=== PATIENT | female | born 1970 | race Caucasian/White ===

== ENCOUNTER 2017-03-20 08:46 | Emergency (ER) | payer BC ==
[2017-03-20 09:00] VITALS: BP 128/82
--- NOTE | 2017-03-20 10:15 | UC ---
Knee Pain HPI - HPI Summary HPI Summary: FELL WHILE SNOWSHOEING YESTERDAY AFTERNOON. STRUCK RIGHT KNEE ON A ROCK. SWELLING HAS IMPROVED SINCE YESTERDAY BUT PAIN IS PERSISTENT. - History of Current Complaint Chief Complaint: UCLowerExtremity Stated Complaint: KNEE INJURY Time Seen by Provider: 03/20/17 09:55 Hx Obtained From: Patient, Family/Business Office Manager - Onset/Duration: Sudden Onset, Lasting Hours, Still Present Severity Initially: Moderate Severity Currently: Moderate Pain Intensity: 3 Pain Scale Used: 0-10 Numeric Character: Sharp, Aching Aggravating Factor(s): Movement, Weight Bearing Alleviating Factor(s): Rest Associated Signs And Symptoms: Positive: Swelling, Bruising Able to Bear Weight: Yes - WITH PAIN - Allergies/Home Medications Allergies/Adverse Reactions: Allergies Allergy/AdvReac Type Severity Reaction Status Date / Time Sulfa Antibiotics Allergy Rash Verified 03/20/17 08:54 narcotics Allergy See Comment Uncoded 03/20/17 08:54 Home Medications: Home Medications Aspirin [Aspirin 81 MG TAB] 03/20/17 [History] Citalopram TAB* [Celexa TAB*] 03/20/17 [History] Esomeprazole(NF) [Nexium(NF)] 03/20/17 [History] Levothyroxine TAB* [Synthroid TAB*] 03/20/17 [History] Montelukast Sodium TAB* [Singulair 10 MG TAB*] 03/20/17 [History] Simvastatin TAB(NF) [Zocor 10 MG (NF)] 03/20/17 [History] PMH/Surg Hx/FS Hx/Imm Hx Previously Healthy: Yes - Surgical History Surgical History: Yes Surgery Procedure, Year, and Place: HYSTERECTOMY. GALLBLADDER. Cervial rib removal - Family History Known Family History: Positive: Hypertension - Social History Alcohol Use: None Substance Use Type: None Smoking Status (MU): Never Smoked Tobacco Review of Systems Constitutional: Negative Skin: Bruising, Other - ABRASION Respiratory: Negative Cardiovascular: Negative Gastrointestinal: Negative Musculoskeletal: Arthralgia, Decreased ROM, Edema All Other Systems Reviewed And Are Negative: Yes Physical Exam Triage Information Reviewed: Yes Appearance: Well-Appearing, No Pain Distress, Well-Nourished Vital Signs: Initial Vital Signs Temp 97.7 F 03/20/17 08:56 Pulse 79 03/20/17 08:56 Resp 16 03/20/17 08:56 BP 128/82 03/20/17 08:56 Pulse Ox 99 03/20/17 08:56 Vital Signs Reviewed: Yes Eyes: Positive: Conjunctiva Clear ENT: Positive: Hearing grossly normal Neck: Positive: Supple Respiratory: Positive: No respiratory distress, No accessory muscle use Cardiovascular: Positive: Pulses Normal Abdomen Description: Positive: Soft Musculoskeletal: Positive: Other: - RIGHT KNEE: NO JOINT LINE TENDERNESS. MCL AND LCL INTACT TO STRESS TESTING. NEG LACHMANS. NEG DRAWERS SIGNS. NEG MCMURRAYS. NEG PATELLAR APPREHENSION TEST. NO TENDERNESS OVER PATELLAR LIGAMENT OR QUADRICEPS TENDON. DECREASED ROM (FLEXION). TENDER OVER PATELLA Neurological: Positive: Alert Psychological: Positive: Normal Response To Family, Age Appropriate Behavior Skin: Positive: Other - ABRASION AND BRUISING RIGHT KNEE Diagnostics - Radiology RIGHT KNEE XRAY Xray Interpretation: No Acute Changes Radiology Interpretation Completed By: Radiologist Knee Pain Course/Dx - Differential Dx/Diagnosis Provider Diagnoses: RIGHT KNEE CONTUSION/ABRASION Discharge - Discharge Plan Condition: Stable Disposition: HOME Patient Education Materials: Contusion in Adults (ED), Knee Pain (ED) Referrals: Aggie Flores MD [Primary Care Provider] - If Needed Additional Instructions: RIGHT KNEE XRAY TODAY NEGATIVE FOR FRACTURE OR DISLOCATION. REST, ICE, COMPRESS, ELEVATE. FOLLOW-UP WITH YOUR PCP IF YOU ARE NOT IMPROVING EXPECTED.
--- NOTE | 2017-03-20 10:31 | RAD ---
INDICATION: Right knee injury. TECHNIQUE: 4 views of the right knee were obtained. FINDINGS: The bones are in normal alignment. No joint effusion or fracture is seen. Joint spaces appear maintained. IMPRESSION: NO EVIDENCE FOR FRACTURE.
== END 2017-03-20 10:52 | disposition home or self-care (01) ==
LOC: UCEAST 08:46
DX: S80.211A Abrasion, right knee, initial encounter (principal); W19.XXXA Unspecified fall, initial encounter; Y93.29 Activity, other involving ice and snow; Y92.9 Unspecified place or not applicable
CPT/HCPCS: 99211; G0463

== ENCOUNTER 2017-04-22 14:43 | Emergency (ER) | payer BC ==
--- OUTSIDE RECORDS SUMMARY | 2017-04-22 15:08 | XMS REPORT ---
:1970 External Reference #:[id number] Author Organization [employer] Address [address] [address] Phone [phone] Care Team Providers Name Role Phone Gladis Love MD Care Team Information Coil Winding Supervisor Unavailable Gladis Love MD Primary Care Physician Unavailable Payers Type Date Identification Numbers Payment Provider Subscriber Commercial Effective: Policy Number: BS Facets Segun Tillman 2014 [id number] PayID: [id number] [facility] [address] [place] [address] Problems Date Description Provider Status Onset: 03/25/2017 Sprain of lateral collateral ligament of Ivanna Marin M.D. Active knee Onset: 10/30/2016 Obstructive sleep apnea syndrome Sonia Santillan MD Active Family History Date Family Member(s) Problem(s) Comments General Breast Cancer Paternal Aunt General Colon Cancer Paternal great grandfather General Hypothyroidism General Depression General Anxiety General Hypercholesterolemia Father Adenomatous Polyps multiple Father [place] mild, 50yrs old Mother Colon Cancer Mother Deep Venous Thrombosis (DVT) Social History Type Date Description Comments Marital Status Lives With Lives With Children Occupation Currently Working Cigarette Use Never Smoked Cigarettes ETOH Use Denies alcohol use Smoking Patient has never smoked Recreational Drug Use Denies Drug Use Daily Caffeine Consumes on average 1 cup of regular coffee per day Exercise Type/Frequency Does not exercise Allergies, Adverse Reactions, Alerts Date Description Reaction Status Severity Comments 04/16/2016 Sulfa Antibiotics active 04/16/2016 Adhesives active 04/16/2016 Pollen, Mold, Dust active 04/16/2016 Chocolate active sensitivity 10/30/2016 Narcotics active Sensitive Medications Medication Date Status Form Strength Qnty SIG Indications Ordering Provider Meloxicam 03/25/ Active Tablets 15mg 30tab 1 by mouth M25.461 Ivanna 2017 s every day Chelsy Marin Mandibular 10/30/ Active Device dear , G47.33 Sonia Advancement 2016 please Rashad Santillan evaluate and fabricate oral appliance for mild sleep apnea Iron 09/25/ Active Tablets 325(65Fe) 60tab 2 tab by Sonia 2016 mg s mouth Tyrell, every day Ciferex 09/24/ Active Capsules 1-3775mg-U 30cap 1 by mouth Sonia 2016 nit s every day MD Tyrell Aspirin / Active Tablets DR 81mg 1 by mouth Unknown 0000 every day Xyzal / Active Tablets 5mg 1 by mouth Unknown 0000 every day Citalopram / Active Tablets 20mg 1 by mouth Unknown Hydrobromide 0000 every day Nexium / Active Capsules DR 40mg 1 by mouth Unknown 0000 every day Singulair / Active Tablets 10mg 1 by mouth Unknown 0000 every day Simvastatin / Active Tablets 20mg 1 by mouth Unknown 0000 every day Synthroid / Active Tablets 125mcg 1 by mouth Unknown 0000 daily Vitamin D / Active 5,000 Unknown 0000 units daily Digestive / Active Capsules daily Unknown Advantage 0000 Multivitamins / Active Capsules 1 by mouth Unknown 0000 every day Vitamin C / Active Tablets 1000mg daily Unknown 0000 Fiber / Active 3-5 times Unknown 0000 per week Ventolin HFA / Active Aerosol 108(90Base 2 puffs by Unknown 0000 ) mcg/Act mouth four times a day as needed Albuterol / Active Nebulizer (2.5mg/3ML 1 vial via Unknown Sulfate 0000 ) 0.083% nebulizer 4 times daily as needed Asmanex / Active Aerosol 220mcg/Inh 1 puff Unknown Twisthaler 30 0000 daily Metered Doses Synthroid / Hx Tablets 112mcg 1 by mouth Unknown 0000 - on , 09/23/ , Sat and Sun Immunizations CPT Code Status Date Vaccine Lot # [id number] Given 11/21/2015 Influenza Virus 3Yrs & Over Vital Signs Date Vital Result Comment 04/01/2017 Height 66 inches 5'6" Weight 210.00 lb BP Systolic 150 mmHg BP Diastolic 100 mmHg Body Temperature 98.5 F Pain Level 9 BMI (Body Mass Index) 33.9 kg/m2 03/25/2017 Height 66 inches 5'6" Weight 210.00 lb Heart Rate 78 /min BP Systolic 136 mmHg BP Diastolic 90 mmHg Body Temperature 97.0 F BMI (Body Mass Index) 33.9 kg/m2 10/30/2016 Height 66 inches 5'6" Weight 196.00 lb Heart Rate 68 /min BP Systolic Sitting 104 mmHg BP Diastolic Sitting 80 mmHg Respiratory Rate 14 /min O2 % BldC Oximetry 98 % BMI (Body Mass Index) 31.6 kg/m2 09/24/2016 Height 66 inches 5'6" Weight 201.00 lb Heart Rate 70 /min BP Systolic Sitting 132 mmHg BP Diastolic Sitting 86 mmHg Respiratory Rate 16 /min O2 % BldC Oximetry 98 % room air BMI (Body Mass Index) 32.4 kg/m2 Neck Circumference in inches 15.5 04/16/2016 Height 66 inches 5'6" Weight 198.00 lb Heart Rate 80 /min 82 BP Systolic 148 mmHg right arm, reg cuff BP Diastolic 102 mmHg right arm, reg cuff BP Systolic Sitting 146 mmHg left arm, reg cuff BP Diastolic Sitting 102 mmHg left arm, reg cuff BP Systolic Standing 136 mmHg left arm, reg cuff BP Diastolic Standing 102 mmHg left arm, reg cuff Respiratory Rate 20 /min BMI (Body Mass Index) 32.0 kg/m2 Results Test Date Test Result H/L Range Note CBC Auto Diff 09/24/2016 White Blood Count 8.3 10^3/uL 3.5-10.8 Red Blood Count 4.47 10^6/uL 4.0-5.4 Hemoglobin 12.8 g/dL 12.0-16.0 Hematocrit 38 % 35-47 Mean Corpuscular Volume 86 fL 80-97 Mean Corpuscular Hemoglobin 29 pg 27-31 Mean Corpuscular HGB Conc 33 g/dL 31-36 Red Cell Distribution Width 13 % 10.5-15 Platelet Count 277 10^3/uL 150-450 Mean Platelet Volume 7 um3 Low 7.4-10.4 Abs Neutrophils 4.6 10^3/uL 1.5-7.7 Abs Lymphocytes 3.0 10^3/uL 1.0-4.8 Abs Monocytes 0.4 10^3/uL 0-0.8 Abs Eosinophils 0.2 10^3/uL 0-0.6 Abs Basophils 0 10^3/uL 0-0.2 Abs Nucleated RBC 0 10^3/uL Granulocyte % 55.2 % 38-83 Lymphocyte % 36.7 % 25-47 Monocyte % 4.7 % 1-9 Eosinophil % 3.0 % 0-6 Basophil % 0.4 % 0-2 Nucleated Red Blood Cells % 0 Laboratory test finding 09/24/2016 Ferritin 10.1 ng/mL Low 11-307 Iron & Iron Binding Capacity 09/24/2016 Iron 46 g/dL Low 50-212 Unsaturated Iron Binding 384 g/dL Total Iron Binding Capacity 430 g/dL 250-450 % Iron Saturation 11 % Low 15-55 Procedures Date CPT Code Description Status 09/28/2016 00553 Sleep Study Unattended,HRT Rate,Oxygen Sat,Resp Completed Effort/Airflow 04/16/2016 74145 EKG Tracing & Interpretation Completed Encounters Type Date Location Provider CPT E/M Dx Office Visit 10/30/2016 [facility] [address] G47.33 1:30p [facility] G25.81 Office Visit 09/24/2016 8:00a [facility] [place] [address] R06.83 [facility] R06.81 G25.81 R40.0 R41.840 Office Visit 04/16/2016 3:00p [facility], [address] R07.9 [facility] At [facility] [place], FACC, FSCAI R94.31 Plan of Care Future Appointment(s):04/04/2017 11:15 am - Shahla Osman DNP, RN, PRODUCT MARKETING ANALYST-BC at [facility]04/01/2017 - Ivanna Marin M.D.M25.561 Pain in right kneeNew Therapy:Physical TherapyFollow up:Follow up: 4 lmdgoL45.461 Effusion, right kneeW19.xxxD Unspecified fall, subsequent ujzgguqlqM59.01xD Contusion of right knee, subsequent encounter
--- OUTSIDE RECORDS SUMMARY | 2017-04-22 15:08 | XMS REPORT ---
:1970 External Reference #:[id number] Author Organization [employer] Address [address] [address] Phone [phone] Care Team Providers Name Role Phone Gladis Love MD Care Team Information Paramedic Instructor Unavailable Aggie Flores MD Primary Care Physician Unavailable Payers Type Date Identification Numbers Payment Provider Subscriber Commercial Effective: Policy Number: BS Facets Segun Tillman 2014 [id number] PayID: [id number] [place] [address] Problems Date Description Provider Status Onset: 03/25/2017 Sprain of lateral collateral ligament of Ivanna Marin M.D. Active knee Onset: 10/30/2016 Obstructive sleep apnea syndrome Sonia Santillan MD Active Family History Date Family Member(s) Problem(s) Comments General Breast Cancer Paternal Aunt General Colon Cancer Paternal great grandfather General Hypothyroidism General Depression General Anxiety General Hypercholesterolemia Father Adenomatous Polyps multiple Father [place] mild, 50yrs old Mother Colon Cancer Mother Deep Venous Thrombosis (DVT) Social History Type Date Description Comments Marital Status Lives With Lives With Children Occupation Currently Working Occupation foreign service officer Cigarette Use Never Smoked Cigarettes ETOH Use Denies alcohol use Smoking Patient has never smoked Recreational Drug Use Denies Drug Use Daily Caffeine Consumes on average 1 cup of regular coffee per day Exercise Type/Frequency Exercises sporadically Currently limited post knee injury Allergies, Adverse Reactions, Alerts Date Description Reaction [...] 220mcg/Inh 1 puff Unknown Twisthaler 30 0000 daily. Not Metered Doses using until spring04/04/17 Synthroid / Hx Tablets 112mcg 1 by mouth Unknown 0000 - on , , Sat 2017 and Sun Immunizations CPT Code Status Date Vaccine Lot # [id number] Given 11/21/2015 Influenza Virus 3Yrs & Over Vital Signs Date Vital Result Comment 04/04/2017 Height 66 inches 5'6" Weight 213.12 lb with shoes Heart Rate 80 /min BP Systolic Sitting 132 mmHg Lue large cuff BP Diastolic Sitting 90 mmHg Lue large cuff Respiratory Rate 16 /min O2 % BldC Oximetry 98 % On Ra BMI (Body Mass Index) 34.4 kg/m2 04/01/2017 Height 66 inches 5'6" Weight 210.00 [...] Procedures Date CPT Code Description Status 09/28/2016 02123 Sleep Study Unattended,HRT Rate,Oxygen Sat,Resp Completed Effort/Airflow 04/16/2016 17257 EKG Tracing & Interpretation Completed Encounters Type Date Location Provider CPT E/M Dx Office Visit 10/30/2016 [facility] [address] G47.33 1:30p [facility] G25.81 Office Visit 09/24/2016 8:00a [facility] [place] [address] R06.83 [facility] R06.81 G25.81 R40.0 R41.840 Office Visit 04/16/2016 3:00p [facility], [address] R07.9 [facility] At [facility] MD, FACC, FSCAI R94.31 Plan of Care Future Appointment(s):07/03/2017 8:00 am - Shahla Osman DNP, RN, WRITER PRODUCER-BC at [facility]04/04/2017 - Shahla Osman DNP, RN, WRITER PRODUCER- BCG47.33 Obstructive sleep apnea (adult) (pediatric)New Orders:Sleep StudyComments:AHI 7.7, O2 [place] 87%, supine index of 10.9.Using oral appliance/ mandibular deviceFollow up:3 monthsRecommendations:Continue oral appliance/ mandibular device. In-lab titration of appliance for best setting and assessfor effective treatment. Bring the garcia for the device titration to the lab. Call one week after thestudy for results. If you have any sleepiness while driving you MUST avoid operating a vehicle or machinery. If you have any further questions, please call the [facility] at [phone].
--- OUTSIDE RECORDS SUMMARY | 2017-04-22 15:08 | XMS REPORT ---
:1970 External Reference #:[id number] Author Organization [employer] Address [address] [address] Phone [phone] Care Team Providers Name Role Phone Gladis Love MD Care Team Information Business Proposal Rep Unavailable Gladis Love MD Primary Care Physician Unavailable Payers Type Date Identification Numbers Payment Provider Subscriber Commercial Effective: Policy Number: BS Facets Segun Tillman 2014 [id number] PayID: [id number] [facility] [address] [place] [address] Problems Date Description Provider Status Onset: 03/25/2017 Sprain of lateral collateral ligament of Ivanna Marin M.D. Active knee Onset: 10/30/2016 Obstructive sleep apnea syndrome Sonia Santillan MD Active Family History Date Family Member(s) Problem(s) Comments General Breast Cancer Paternal Aunt General Colon Cancer Paternal great grandfather General Hypothyroidism General Depression General Anxiety General Hypercholesterolemia Father Adenomatous Polyps multiple Father [place] mild, 50yrs old Mother Colon Cancer Mother [...] CPT Code Status Date Vaccine Lot # [id number] Given 11/21/2015 Influenza Virus 3Yrs & Over Vital Signs Date Vital Result Comment 03/25/2017 Height 66 inches 5'6" Weight 210.00 [...] Procedures Date CPT Code Description Status 09/28/2016 55846 Sleep Study Unattended,HRT Rate,Oxygen Sat,Resp Completed Effort/Airflow 04/16/2016 53698 EKG Tracing & Interpretation Completed Encounters Type Date Location Provider CPT E/M Dx Office Visit 10/30/2016 [facility] [address] G47.33 1:30p [facility] G25.81 Office Visit 09/24/2016 8:00a [facility] [place] [address] R06.83 [facility] R06.81 G25.81 R40.0 R41.840 Office Visit 04/16/2016 3:00p [facility], [address] R07.9 [facility] At [facility] MD, FACC, FSCAI R94.31 Plan of Care Future Appointment(s):04/04/2017 11:15 am - Shahla Osman DNP, RN, DIRECTOR MULTIPLE SCLEROSIS CENTER-BC at [facility]03/25/2017 - Ivanna Marin M.D.M25.561 Pain in right kneeFollow up:Follow up: after testing is completed - mri r kneeM25.461 Effusion, right kneeNew Medication:Meloxicam 15 mgNew Xrays:MRI Knee Right W/OS83.421A Sprain of lateral collateral ligament of right knee, initW19.xxxA Unspecified fall, initial ldhtvxsymV02.01xA Contusion of right knee , initial encounter
--- OUTSIDE RECORDS SUMMARY | 2017-04-22 15:08 | XMS REPORT ---
:1970 External Reference #:[id number] Author Organization [facility] Address [address] [place] [address] Phone [phone] Care Team Providers Name Role Phone Aggie Flores M.D. Care Team Information Senior Tax Analyst Unavailable Aggie Flores M.D. Primary Care Physician Unavailable Payers Type Date Identification Numbers Payment Provider Subscriber Commercial Policy Number: [id number] / Of [employer] Group Number: [id number] [address] [id number] PayID: [id number] [place] [address] Problems Date Description Provider Status Onset: 11/28/2016 Obstructive sleep apnea syndrome Aggie Flores M.D. Active Onset: 11/28/2016 Restless legs Aggie Flores M.D. Active Onset: 11/28/2016 Major depressive disorder Aggie Flores M.D. Active Onset: 11/28/2016 Gastroesophageal reflux disease Aggie Flores M.D. Active Onset: 11/28/2016 Hypothyroidism Aggie Flores M.D. Active Onset: 11/28/2016 Asthma Aggie Flores M.D. Active Onset: 11/28/2016 Hyperlipidemia Aggie Flores M.D. Active Onset: 04/10/2017 Mild intermittent asthma Aggie Flores M.D. Active Family History Date Family Member(s) Problem(s) Comments General Breast Cancer father's sister - inflammatory breast Ca. MGM- breast CA. General Colon Cancer mother. father had multiple adenomatous polyps, PGGF - of colon cancer. Father 75 Father Coronary Artery Disease (CAD) Father Hyperlipidemia Father Hypertension Mother 70 Mother Colon Cancer Mother Hypertension Mother Arthritis First Son 21 Second Son 18 Third Son 14 Third Son Hypothyroidism Siblings 3 sisters hypthyroidism, depression, anxiety. Social History Type Date Description Comments Marital Status Legal Status: Lives With Children Lives With Spouse Diet Diet cut back soda, sugar/carbs Occupation [employer] Cigarette Use Never Smoked Cigarettes ETOH Use Denies alcohol use Smoking Patient has never smoked Exercise Type/Frequency Exercises sporadically Allergies, Adverse Reactions, Alerts Date Description Reaction Status Severity Comments 04/09/2016 Sulfa celebrex- multiple intes ulcer active 11/28/2016 Tramadol active Medications Medication Date Status Form Strength Qnty SIG Indications Ordering Provider Levothyroxine 04/10/ Active Tablets 137mcg 90tab 1 by mouth Aggie Sodium 2018 s every day Chelsy Flores Xyzal / Active Tablets 5mg 90tab 1 by mouth Aggie 0000 s every day Chelsy Flores Citalopram / Active Tablets 20mg 135ta 1.5 tabs by Aggie Hydrobromide 0000 bs mouth every , day MMilly Nexium / Active Packet 40mg 1 tab am Unknown 0000 Singulair / Active Tablets 10mg 90tab 1 by mouth Aggie 0000 s every day Chelsy Flores Simvastatin / Active Tablets 20mg 90tab 1 by mouth Aggie 0000 s every day Chelsy Flores Asmanex 14 / Active Aerosol 220mcg/In 3unit 1 Aggie Metered Doses 0000 h s inhalations Godfrey, twice a day M.DAlmaz Ventolin HFA / Active Aerosol 108(90Bas 18gm 2 puffs Aggie 0000 e) every 4 Godfrey, mcg/Act hours as M.D. needed Albuterol / Active Nebulizer 0.63mg/3M 150ml 1 ampule Aggie Sulfate 0000 L every four Godfrey, hours via M.DAlmaz nebulizer as needed Multivitamin / Active Tablets 1 by mouth Unknown Adult 0000 every day Vitamin D 00/ Active Tablets 1000Unit 5 by mouth Unknown 0000 every day otc Fiber 00/ Active Tablets 625mg 1 PO qd Unknown 0000 Digestive 00/ Active Capsules 1 PO qd Unknown Advantage 0000 Vitamin C / Active Tablets 1000mg 1 /day Unknown 0000 Aspirin 00// Active Tablets DR 81mg 1 by mouth Unknown 0000 every day Folic Acid // Active Tablets 400mcg Unknown 0000 Synthroid / Hx Tablets 125mcg 90tab 1 tab daily Aggie 0000 - s Godfrey, 04/10/ M.DAlmaz 2018 Synthroid / Hx Tablets 112mcg Sun TTHsat Unknown 0000 - 2016 Vital Signs Date Vital Result Comment 04/10/2017 BP Systolic 120 mmHg BP Diastolic 68 mmHg Heart Rate 68 /min Body Temperature 98.1 F Respiratory Rate 16 /min Height 66 inches 5'6" Weight 211.00 lb BMI (Body Mass Index) 34.1 kg/m2 11/28/2016 BP Systolic 110 mmHg BP Diastolic 84 mmHg Heart Rate 72 /min Body Temperature 98.1 F Respiratory Rate 16 /min Height 66 inches 5'6" Weight 202.00 lb BMI (Body Mass Index) 32.6 kg/m2 08/03/2016 BP Systolic 154 mmHg BP Diastolic 84 mmHg Heart Rate 72 /min Body Temperature 97.9 F Height 66 inches 5'6" Weight 201.00 lb BMI (Body Mass Index) 32.4 kg/m2 04/09/2016 BP Systolic 110 mmHg BP Diastolic 72 mmHg Heart Rate 64 /min Body Temperature 98.6 F Respiratory Rate 16 /min Height 66 inches 5'6" Weight 198.00 lb BMI (Body Mass Index) 32.0 kg/m2 Results Test Date Test Result H/L Range Note Complete Blood Count 11/28/2016 WBC 7.2 x10^3/UL 3.6-9.6 RBC 4.72 x10^6/UL 3.90-5.70 HGB 13.7 g/dL 12.1-17.2 HCT 40 % 36-50 MCV 84.0 fL 82.2-97.4 MCH 29.1 pg 27.6-33.3 MCHC 34.5 g/dL 33.0-35.5 RDW 13.8 % High 11.6-13.7 PLT 333 x10^3/UL 150-400 MPV 5.9 fL Low 7.4-10.4 Gran # 4.0 x10^3/UL 1.5-7.2 Lymph# 2.9 x10^3/UL 0.7-4.9 Keith# 0.3 x10^3/UL 0.1-0.9 Gran % 54.1 % 42.2-75.2 Lymph % 41.6 % 20.5-51.1 Keith% 4.3 % 1.7-9.3 Laboratory test finding 11/28/2016 TSH 4.14 mIU/L 0.50-6.00 Free T4 1.03 ng/dL 0.75-1.54 Serum Iron 57 g/dL Low 60-150 Ferritin 10 ng/mL Low 15-200 1 Iron & Iron Binding Capacity 09/24/2016 Iron 46 g/dL Low 50-212 Unsaturated Iron Binding 384 g/dL Total Iron Binding Capacity 430 g/dL 250-450 % Iron Saturation 11 % Low 15-55 Laboratory test finding 09/24/2016 Ferritin 10.1 ng/mL Low 11-307 CBC Auto Diff 09/24/2016 White Blood Count [...] 0-2 Nucleated Red Blood Cells % 0 CBC No Diff 04/10/2016 White Blood Count 6.4 10^3/uL 3.5-10.8 Red Blood Count 4.98 10^6/uL 4.0-5.4 Hemoglobin 14.0 g/dL 12.0-16.0 Hematocrit 41 % 35-47 Mean Corpuscular Volume 83 fL 80-97 Mean Corpuscular Hemoglobin 28 pg 27-31 Mean Corpuscular HGB Conc 34 g/dL 31-36 Red Cell Distribution Width 13 % 10.5-15 Platelet Count 269 10^3/uL 150-450 Mean Platelet Volume 7 um3 Low 7.4-10.4 Comp Metabolic Panel 04/10/2016 Sodium 139 mmol/L 133-145 Potassium 4.0 mmol/L 3.5-5.0 Chloride 103 mmol/L 101-111 Co2 Carbon Dioxide 30 mmol/L 22-32 Anion Gap 6 mmol/L 2-11 Glucose 88 mg/dL 70-100 Blood Urea Nitrogen 15 mg/dL 6-24 Creatinine 0.79 mg/dL 0.51-0.95 BUN/Creatinine Ratio 19.0 8-20 Calcium 9.2 mg/dL 8.6-10.3 Total Protein 6.7 g/dL 6.4-8.9 Albumin 4.4 g/dL 3.2-5.2 Globulin 2.3 g/dL 2-4 Albumin/Globulin Ratio 1.9 1-3 Total Bilirubin 0.80 mg/dL 0.2-1.0 Alkaline Phosphatase 73 U/L 34-104 Alt 19 U/L 7-52 Ast 19 U/L 13-39 Egfr Non- 78.3 >60 Egfr 100.8 >60 2 Lipid Profile (Trig/Chol/HDL) 04/10/2016 Triglycerides 121 mg/dL 3 Cholesterol 173 mg/dL 4 HDL Cholesterol 43.2 mg/dL 5 LDL Cholesterol 106 mg/dL 6 Laboratory test finding 04/10/2016 TSH (Thyroid Stim Horm) 3.72 mcIU/mL 0.34-5.60 Free T4 (Free Thyroxine) 0.92 ng/dL 0.61-1.12 Vitamin D Total 25(Oh) 41.3 ng/mL 30-50 1 RESULTS VERIFIED BY REPEAT ANALYSIS 2 Because ethnic data is not always readily available, this report includes an eGFR for both -Americans and non- Americans. The National Kidney Disease Education Program (NKDEP) does not endorse the use of the MDRD equation for patients that are not between the ages of 18 and 70, are , have extremes of body size, muscle mass, or nutritional status, or are non- or non-. According to the National Kidney Foundation, irrespective of diagnosis, the stage of the disease is based on the level of kidney function: Stage Description GFR(mL/min/1.73 m(2)) 1 Kidney damage with normal or decreased GFR 90 2 Kidney damage with mild decrease in GFR 60-89 3 Moderate decrease in GFR 30-59 4 Severe decrease in GFR 15-29 5 Kidney failure <15 (or dialysis) 3 Desirable <150 Borderline high 150-199 High 200-499 Very High >500 4 Desirable <200 Borderline high 200-239 High >239 5 Low <40 Desirable: 40-60 High: >60 6 Desirable: <100 mg/dL Near Optimal: 100-129 mg/dL Borderline High: 130-159 mg/dL High: 160-189 mg/dL Very High: >189 mg/dL Procedures Date CPT Code Description Status Comment 04/09/2016 37281 Electrocardiogram Complete Completed 03/18/2016 Mammogram Completed 03/18/2013 Colonoscopy Completed due in 2019. Encounters Type Date Location Provider CPT E/M Dx Office Visit 11/28/2016 1:[facility] Aggie Flores M.D. 06113 E03.9 G47.33 G25.81 J45.20 Office Visit 08/03/2016 11:20a [facility] Aggie Flores M.D. 59395 Q76.5 E03.8 R06.83 J45.20 Office Visit 04/09/2016 2:30p [facility] Gladis Love M.D. 20662 R07.89 F43.23 E03.8 Q76.5 E55.9 Z00.01 Plan of Care 04/10/2017 - Aggie Flores M.D.Z00.00 Encntr for general adult medical exam w/o abnormal findingsNew Labs:CBC Electronic-ALL Lab CompaniComp Metabolic-ALL Lab CompaniLipid Panel-ALL Lab [facility] ([facility] – [place]/[facility])Comments:Encourage an active and healthy lifestyle with proper eating habits including fruits, vegetables, 6-8 glasses of water a day and monitoring portion size. Recommend 30 minutes of daily physical activityincluding walking, aerobic exercise, sports , yoga or dance. Any activity is better than no activity.Recommend routine eye and dental exams. Next physical is due in 1-2 years.Follow up:fasting labs 1 yearE03.9 Hypothyroidism, unspecifiedNew Labs:TSH ([facility])Free T4 ([facility]/ [facility])Comments:increase to 137 check tsh in 4 bqpgxR58.33 Obstructive sleep apnea (adult) (pediatric)Comments:mandibular zkcssaS99.20 Mild intermittent asthma, uncomplicatedComments:stable on regimenAllNew Medication:Levothyroxine Sodium 137 mcgComments:~B_~U_Medication Management~b_~u_ Patient Understands medications she's taking? Yes No Are there Barriers to Adherence? Yes No Has the patient been asked about herbal supplements and therapies, and OTC meds? Yes No
[2017-04-22 16:24] LABS: ABS Basophils 0 10^3/ul (0-0.2); ABS Eosinophils 0 10^3/ul (0-0.6); ABS Monocytes 0.5 10^3/ul (0-0.8); ABS Neutrophils 2.8 10^3/ul (1.5-7.7); ABS Nucleated RBC 0 10^3/ul; Hematocrit 39 % (35-47); Hemoglobin 13.4 g/dl (12.0-16.0); Mean Corpuscular HGB Conc 35 g/dl (31-36); Mean Corpuscular Hemoglobin 29 pg (27-31); Mean Corpuscular Volume 84 fL (80-97); Mean Platelet Volume 7 um3 (7.4-10.4); Nucleated Red Blood Cells % 0; Platelet Count 226 10^3/ul (150-450); Red Blood Count 4.56 10^6/ul (4.0-5.4); Red Cell Distribution Width 13 % (10.5-15); White Blood Count 4.4 10^3/ul (3.5-10.8)
--- NOTE | 2017-04-22 16:40 | RAD ---
HISTORY: Cough COMPARISONS: None VIEWS: 4: Frontal dual-energy and lateral views of the chest. FINDINGS: CARDIOMEDIASTINAL SILHOUETTE: The cardiomediastinal silhouette is normal. DEVIKA: The devika are normal. PLEURA: The costophrenic angles are sharp. No pleural abnormalities are noted. LUNG PARENCHYMA: The lungs are clear. ABDOMEN: The upper abdomen is clear. There is no subphrenic gas. BONES AND SOFT TISSUES: No bone or soft tissue abnormalities are noted. OTHER: None. IMPRESSION: NO ACTIVE CARDIOPULMONARY DISEASE.
[2017-04-22 16:41] LABS: EGFR Non-African American 82.8 (>60)
--- NOTE | 2017-04-22 16:52 | ED ---
Influenza-Like Illness - HPI Summary HPI Summary: 46-year-old female presents with cough for past 3 days. She states she has been having shortness of breath. She states she has been having chest tightness when she coughs. She has history of asthma. She does take an inhaler for asthma. She states that she has asmanex at home that she has not been taking. She admits to nausea but denies any vomiting. She admits to an episode of diarrhea. She denies any abdominal pain. She admits to muscle fatigue and fevers. She states last years she had a sudden cardiac event. - History of Current Complaint Chief Complaint: EDFluSymptoms Time Seen by Provider: 04/22/17 15:10 - Allergy/Home Medications Allergies/Adverse Reactions: Allergies Allergy/AdvReac Type Severity Reaction Status Date / Time MS Sulfa Antibiotics Allergy Rash Verified 03/27/17 14:16 [Sulfa Antibiotics] narcotics Allergy See Comment Uncoded 03/27/17 14:16 PMH/Surg Hx/FS Hx/Imm Hx Endocrine/Hematology History: Denies: Hx Anticoagulant Therapy, Hx Diabetes Cardiovascular History: Denies: Hx Hypertension, Hx Pacemaker/ICD Respiratory History: Reports: Hx Asthma History: Denies: Hx Renal Disease Sensory History: Denies: Hx Hearing Aid Psychiatric History: Denies: Hx Panic Disorder - Surgical History Surgery Procedure, Year, and Place: HYSTERECTOMY. GALLBLADDER. Cervial rib removal. OVARIAN CYST REMOVED 1990 Infectious Disease History: No Infectious Disease History: Denies: History Other Infectious Disease, Traveled Outside the [place] in Last 30 Days - Family History Known Family History: Positive: Hypertension - Social History Alcohol Use: Rare Substance Use Type: Reports: None Smoking Status (MU): Never Smoked Tobacco Review of Systems Positive: Fever Positive: Chest Pain Positive: Shortness Of Breath, Cough Positive: Diarrhea, Nausea. Negative: Abdominal Pain, Vomiting All Other Systems Reviewed And Are Negative: Yes Physical Exam Triage Information Reviewed: Yes Vital Signs On Initial Exam: Initial Vitals Temp Pulse Resp BP Pulse Ox 98.7 F 92 18 152/92 99 04/22/17 14:46 04/22/17 14:46 04/22/17 14:46 04/22/17 14:46 04/22/17 14:46 Vital Signs Reviewed: Yes Appearance: Positive: Well-Appearing Skin: Positive: Warm, Dry Head/Face: Positive: Normal Head/Face Inspection Eyes: Positive: Normal, EOMI, AMARA, Conjunctiva Clear ENT: Positive: Pharynx normal, Nasal congestion, TMs normal Neck: Positive: Supple, Nontender, No Lymphadenopathy Respiratory/Lung Sounds: Positive: Clear to Auscultation, Breath Sounds Present Cardiovascular: Positive: Normal, RRR Abdomen Description: Positive: Nontender, Soft Bowel Sounds: Positive: Present Musculoskeletal: Positive: Normal Neurological: Positive: Normal Psychiatric: Positive: Normal Diagnostics - Vital Signs Vital Signs Temp Pulse Resp BP Pulse Ox 04/22/17 14:46 98.7 F 92 18 152/92 99 - Laboratory Lab Results: Lab Results 04/22/17 04/22/17 04/22/17 Range/Units 15:34 16:10 16:10 WBC 4.4 (3.5-10.8) 10^3/ul RBC 4.56 (4.0-5.4) 10^6/ul Hgb 13.4 (12.0-16.0) g/dl Hct 39 (35-47) % MCV 84 (80-97) fL MCH 29 (27-31) pg MCHC 35 (31-36) g/dl RDW 13 (10.5-15) % Plt Count 226 (150-450) 10^3/ul MPV 7 L (7.4-10.4) um3 Neut % (Auto) 63.7 (38-83) % Lymph % (Auto) 24.0 L (25-47) % [place] % (Auto) 10.6 H (1-9) % Eos % (Auto) 1.0 (0-6) % Baso % (Auto) 0.7 (0-2) % Absolute Neuts (auto) 2.8 (1.5-7.7) 10^3/ul Absolute Lymphs (auto) 1.0 (1.0-4.8) 10^3/ul Absolute Monos (auto) 0.5 (0-0.8) 10^3/ul Absolute Eos (auto) 0 (0-0.6) 10^3/ul Absolute Basos (auto) 0 (0-0.2) 10^3/ul Absolute Nucleated RBC 0 10^3/ul Nucleated RBC % 0 Sodium (133-145) mmol/L Potassium (3.5-5.0) mmol/L Chloride (101-111) mmol/L Carbon Dioxide (22-32) mmol/L Anion Gap (2-11) mmol/L BUN (6-24) mg/dL Creatinine (0.51-0.95) mg/dL Est GFR ( Amer) (>60) Est GFR (Non-Af Amer) (>60) BUN/Creatinine Ratio (8-20) Glucose (70-100) mg/dL Calcium (8.6-10.3) mg/dL Total Bilirubin (0.2-1.0) mg/dL AST (13-39) U/L ALT (7-52) U/L Alkaline Phosphatase (34-104) U/L Troponin I (<0.04) ng/mL B-Natriuretic Peptide 174 H ( - 100) pg/mL Total Protein (6.4-8.9) g/dL Albumin (3.2-5.2) g/dL Globulin (2-4) g/dL Albumin/Globulin Ratio (1-3) Influenza A (Rapid) Positive H (Negative) Influenza B (Rapid) Negative (Negative) 04/22/17 Range/Units 16:10 WBC (3.5-10.8) 10^3/ul RBC (4.0-5.4) 10^6/ul Hgb (12.0-16.0) g/dl Hct (35-47) % MCV (80-97) fL MCH (27-31) pg MCHC (31-36) g/dl RDW (10.5-15) % Plt Count (150-450) 10^3/ul MPV (7.4-10.4) um3 Neut % (Auto) (38-83) % Lymph % (Auto) (25-47) % [place] % (Auto) (1-9) % Eos % (Auto) (0-6) % Baso % (Auto) (0-2) % Absolute Neuts (auto) (1.5-7.7) 10^3/ul Absolute Lymphs (auto) (1.0-4.8) 10^3/ul Absolute Monos (auto) (0-0.8) 10^3/ul Absolute Eos (auto) (0-0.6) 10^3/ul Absolute Basos (auto) (0-0.2) 10^3/ul Absolute Nucleated RBC 10^3/ul Nucleated RBC % Sodium 137 (133-145) mmol/L Potassium 3.7 (3.5-5.0) mmol/L Chloride 103 (101-111) mmol/L Carbon Dioxide 28 (22-32) mmol/L Anion Gap 6 (2-11) mmol/L BUN 13 (6-24) mg/dL Creatinine 0.75 (0.51-0.95) mg/dL Est GFR ( Amer) 106.5 (>60) Est GFR (Non-Af Amer) 82.8 (>60) BUN/Creatinine Ratio 17.3 (8-20) Glucose 100 (70-100) mg/dL Calcium 9.2 (8.6-10.3) mg/dL Total Bilirubin 0.40 (0.2-1.0) mg/dL AST 34 (13-39) U/L ALT 39 (7-52) U/L Alkaline Phosphatase 61 (34-104) U/L Troponin I 0.00 (<0.04) ng/mL B-Natriuretic Peptide ( - 100) pg/mL Total Protein 7.0 (6.4-8.9) g/dL Albumin 4.1 (3.2-5.2) g/dL Globulin 2.9 (2-4) g/dL Albumin/Globulin Ratio 1.4 (1-3) Influenza A (Rapid) (Negative) Influenza B (Rapid) (Negative) Result Diagrams: 04/22/17 16:10 04/22/17 16:10 Lab Statement: Any lab studies that have been ordered have been reviewed, and results considered in the medical decision making process. - Radiology chest Xray Interpretation: No Acute Changes Radiology Interpretation Completed By: Radiologist - EKG No standard instances Cardiac Rate: NL EKG Rhythm: Sinus Rhythm ST Segment: Normal EKG Interpretation: normal sinus rhythm EKG Comparison: No Significant Change Flu Symptom Course/Dx - Course Course Of Treatment: 46-year-old female presents with cough for past 3 days. She states she has been having shortness of breath. She states she has been having chest tightness when she coughs. She has history of asthma. She does take an inhaler for asthma. She states that she has asmanex at home that she has not been taking. She admits to nausea but denies any vomiting. She admits to an episode of diarrhea. She denies any abdominal pain. She admits to muscle fatigue and fevers. She states last years she had a sudden cardiac event. on exam lungs CTA. abdomen soft nontender. ekg normal. chest xray normal. flu A pos. will treat with tamiflu and tessalon. patient will restart asmanex. patient understand and agrees with plan. - Diagnoses Differential Diagnosis/HQI/PQRI: Positive: Influenza, Pneumonia, Upper Respiratory Infection Provider Diagnoses: Influenza Discharge - Discharge Plan Condition: Good Disposition: HOME Prescriptions: Benzonatate CAP* [Tessalon 100 MG CAP*] 100 mg PO TID #21 cap Ondansetron ODT TAB* [Zofran 4 MG Odt TAB*] 4 mg PO Q6H PRN #12 tab.odt PRN Reason: Nausea Oseltamivir CAP* [Tamiflu CAP*] 75 mg PO BID #9 cap Patient Education Materials: Influenza (ED) Referrals: Aggie Flores MD [Primary Care Provider] - Additional Instructions: Take Tamiflu twice for 5 days first dose given in ED Take tessalon three times a day for cough Take Tylenol and ibuprofen for muscle aches and fever every 6 hours Restart home inhaled steroid Use Zofran every 6 hours for nausea as needed Saline rinse can be used multiple times a day for nasal congestion Use humidifier in room or place bowls of warm water around room for cough Try to drink fluids every hour and eat a small snack every 3 hours Follow up with primary within 5 days Return to ED if develop any new or worsening symptoms
[2017-04-22] MEDS ORDERED: Oseltamivir CAP* 75 MG CAP PO ONE (16:57)
[2017-04-22 17:27] VITALS: BP 133/86
== END 2017-04-22 17:25 | disposition home or self-care (01) ==
LOC: ED 14:43
DX: J11.1 Influenza due to unidentified influenza virus with other respiratory manifestations (principal); R07.89 Other chest pain; R06.02 Shortness of breath; J45.909 Unspecified asthma, uncomplicated; Z90.710 Acquired absence of both cervix and uterus; Z90.49 Acquired absence of other specified parts of digestive tract; Z88.5 Allergy status to narcotic agent; Z88.2 Allergy status to sulfonamides
CPT/HCPCS: 36415; 71046; 80053; 83880; 84484; 85025; 87502; 93005; 99283; A9270-GY

== ENCOUNTER 2017-06-05 13:11 | Emergency (ER) | payer BC ==
[2017-06-05 14:31] VITALS: BP 162/92
--- NOTE | 2017-06-05 15:33 | RAD ---
INDICATION: 5 days shortness of breath. Productive cough. Fever. Previous myocardial infarction. Asthma. COMPARISON: April 22, 2017 TECHNIQUE: Dual energy PA and routine lateral views of the chest were obtained. REPORT: Elevated lung volumes. No focal pulmonary lesion, compelling alveolar consolidation, pleural effusion, pneumothorax. The heart, pulmonary vasculature, and mediastinal contours are unremarkable. LEFT supraclavicular surgical clips. IMPRESSION: Elevated lung volumes suggest obstructive lung disease. No acute cardiopulmonary process evident.
--- NOTE | 2017-06-05 19:01 | UC ---
Kaushal Barragan Rebecca, scribed for Terrell Brandon MD on 06/05/17 at 1509 . Respiratory Complaint HPI - HPI Summary HPI Summary: Pt is a 46 y/o F who presents to [facility] with a CC of SOB. Patient has been feeling "sick" since 05/30, 1 week ago. Patient reports symptoms began as a sore throat, rhinorrhea, and "stuffy head." Symptoms then progressed to consist of fever, nasal and chest congestion, dizziness, productive cough, post nasal drip , and sinus pain. Today, the patient began feeling SOB which prompted her visit to [facility]. Rhinorrhea is producing yellow/green discharge and her cough is "drum drier" at night. Sx aggravated and alleviated by nothing. She had influenza A last month which she feels did not fully improve prior to the onset of her current symptoms. 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 PMHx asthma. - History of Current Complaint Chief Complaint: UCRespiratory Stated Complaint: COUGH HEADACHE FEVER CONGESTION Time Seen by Provider: 06/05/17 14:36 Hx Obtained From: Patient Hx Last Menstrual Period: hysterectomy Onset/Duration: Lasting Days, Still Present Severity Currently: Moderate Pain Intensity: 7 Pain Scale Used: 0-10 Numeric Character: Cough: Productive Aggravating Factors: Nothing Alleviating Factors: Nothing Associated Signs And Symptoms: Positive: Fever, Nasal Congestion - Allergies/Home Medications Allergies/Adverse Reactions: Allergies Allergy/AdvReac Type Severity Reaction Status Date / Time Sulfa (Sulfonamide Allergy Intermediate Rash Verified 06/05/17 14:10 Antibiotics) mold Allergy sinus Verified 06/05/17 14:10 pollen extracts Allergy sinus, Verified 06/05/17 14:10 breathing narcotics Allergy See Comment Uncoded 06/05/17 14:10 PMH/Surg Hx/FS Hx/Imm Hx - Additional Past Medical History Additional PMH: PMHx: asthma, hypothyroid, seasonal allergies, sudden cardiac arrest s/p surgery Other History Of: Negative For: Anticoagulant Therapy - Surgical History Surgical History: Yes Surgery Procedure, Year, and Place: HYSTERECTOMY. GALLBLADDER. Cervial rib removal. OVARIAN CYST REMOVED 1990 - Family History Known Family History: Positive: Hypertension - Social History Alcohol Use: Rare Substance Use Type: None Smoking Status (MU): Never Smoked Tobacco Review of Systems Constitutional: Fever, Other - "stuffy head" ENT: Sore Throat, Nasal Discharge, Sinus Congestion, Other - Post nasal dripo Respiratory: Shortness Of Breath, Cough - productive, Other - Chest congestion Cardiovascular: Negative Gastrointestinal: Negative Genitourinary: Negative Motor: Negative Neurovascular: Negative Musculoskeletal: Negative Neurological: Negative Psychological: Negative All Other Systems Reviewed And Are Negative: Yes Physical Exam - Summary Physical Exam Summary: VITAL SIGNS: Reviewed. GENERAL: ~Patient is a well developed and nourished F who is lying comfortable in the stretcher. ~Patient is not in any acute respiratory distress. HEAD AND FACE: Normocephalic EYES: PERRLA, EOMI x 2. EARS: Hearing grossly intact. MOUTH: Mild runny nose. No pharyngeal erythema. NECK: Supple, trachea is midline, no adenopathy, no JVD, no carotid bruit. CHEST: Symmetric, no tenderness at palpation LUNGS: Crackles on the left side. CVS: Regular rate and rhythm, S1 and S2 present, no murmurs or gallops appreciated. ABDOMEN: Soft, non-tender. Bowel sounds are normal. No abdominal abnormal pulsations. EXTREMITIES: Full ROM in all major joints, no edema, no cyanosis or clubbing. NEURO: Alert and oriented x 3. No acute neurological deficits. Speech is normal and follows commands. SKIN: Dry and warm Triage Information Reviewed: Yes Vital Signs: Initial Vital Signs Temp 97.9 F 06/05/17 14:02 Pulse 81 06/05/17 14:02 Resp 16 06/05/17 14:02 BP 136/98 06/05/17 14:02 Pulse Ox 98 06/05/17 14:02 Vital Signs Reviewed: Yes Diagnostic Evaluation - Laboratory O2 Sat by Pulse Oximetry: 96 - Radiology Xray Interpretation: No Acute Changes - Elevated lung volumes suggest obstructive lung disease. No acute cardiopulmonary process evident. Physician reviewed this radiology report. Radiology Interpretation Completed By: Radiologist Respiratory Course/Dx - Course Course Of Treatment: Pt is a 46 y/o F who presents to [facility] with a CC of SOB. Patient has been feeling "sick" since 05/30, 1 week ago. Patient reports symptoms began as a sore throat, rhinorrhea, and "stuffy head." Symptoms then progressed to consist of fever, nasal and chest congestion, dizziness, productive cough, post nasal drip, and sinus pain. Today, the patient began feeling SOB which prompted her visit to [facility]. Rhinorrhea is producing yellow/ green discharge and her cough is "drum drier" at night. She had influenza A last month which she feels did not fully improve prior to the onset of her current symptoms. PMHx asthma. Influenza A and B negative. CXR reveals no acute findings. Pt will be D/C to home with Dx of bronchitis with Rx for Z-Gabino. Patient understands and agrees. Allergies noted. The patient was found to have increase BP in UC. The patient will follow up with PCP for better control of BP. - Differential Dx/Diagnosis Differential Diagnosis/HQI/PQRI: Asthma, Bronchitis, Laryngitis, Lower Resp Infection, Sinusitis Provider Diagnoses: Bronchitis Discharge - Sign-Out/Discharge Documenting (check all that apply): Discharge - Discharge Plan Condition: Stable Disposition: HOME Prescriptions: Azithromyxin GABINO (NF) [Z-Gabino (Zithromax) 250 mg tabs #6] 2 tab PO .TODAY, THEN 1 DAILY #6 tab Patient Education Materials: Acute Bronchitis (ED) Referrals: Aggie Flores MD [Primary Care Provider] - Additional Instructions: Take medications as instructed Increase your fluid intake Return to the if symptoms worsen FOLLOW UP WITH YOUR PRIMARY CARE PROVIDER WITHIN ONE WEEK FOR HIGH BLOOD PRESSURE NOTED TODAY. - Billing Disposition and Condition Condition: STABLE Disposition: HOME The documentation as recorded by the Kaushal chamberlain Rebecca accurately reflects the service I personally performed and the decisions made by , Terrell Brandon MD.
== END 2017-06-05 15:56 | disposition home or self-care (01) ==
LOC: UCEAST 13:11
DX: J40 Bronchitis, not specified as acute or chronic (principal); Z88.5 Allergy status to narcotic agent; Z88.2 Allergy status to sulfonamides
CPT/HCPCS: 71046; 87502; 99212; G0463

== ENCOUNTER 2017-08-09 15:55 | Emergency (ER) | payer BC ==
--- OUTSIDE RECORDS SUMMARY | 2017-08-09 16:17 | XMS REPORT ---
:1970 External Reference #:[id number] Author Organization [employer] Address [address] [address] Phone [phone] Care Team Providers Name Role Phone Gladis Love MD Care Team Information Keno Writer / Runner Unavailable Aggie Flores MD Primary Care Physician Unavailable Payers Type Date Identification Numbers Payment Provider Subscriber Commercial Effective: Policy Number: BS [employer] Segun Tillman 2014 [id number] PayID: [id number] [address] [address] [place] [address] Problems Date Description Provider Status Onset: 10/30/2016 Obstructive sleep apnea syndrome Sonia Santillan MD Active Onset: 03/25/2017 Sprain of lateral collateral ligament of Ivanna Marin M.D. Active knee Family History Date Family Member(s) Problem(s) Comments General Breast Cancer Paternal Aunt General Colon Cancer Paternal great grandfather General Hypothyroidism General Depression General Anxiety General Hypercholesterolemia Father Hypertension Father Adenomatous Polyps multiple Father RI mild, 50yrs old Mother Colon Cancer Mother Deep Venous Thrombosis (DVT) First Sister Hypertension Paternal Grandmother Hypertension Social History Type Date Description Comments Marital Status Lives With Lives With Children Occupation Currently Working Occupation consumer analyst Cigarette Use Never Smoked Cigarettes ETOH Use Denies alcohol use Smoking Patient has never smoked Recreational Drug Use Denies Drug Use Daily Caffeine Consumes on average 1 cup of maybe 2 regular coffee per day Exercise Type/Frequency Exercises sporadically Currently limited post knee injury General Hx Text Do you follow a special diet? No, Guidance needed Do you have problems with snoring, day time fatigue? Yes, sleep apnea -Started CPAP in May Allergies, Adverse Reactions, Alerts Date Description Reaction Status Severity Comments 04/16/2016 Sulfa Antibiotics active 04/16/2016 Adhesives active 04/16/2016 Pollen, Mold, Dust active 04/16/2016 Chocolate active sensitivity 10/30/2016 Narcotics active Sensitive 07/15/2017 Tramadol active 07/15/2017 Celebrex active Medications Medication Date Status Form Strength Qnty SIG Indications Ordering Provider Mandibular 10/30/ Active Device dear , G47.33 Sonia Advancement 2016 please Rashad Santillan evaluate and fabricate oral appliance for mild sleep apnea Aspirin / Active Tablets DR 81mg 1 by mouth Unknown 0000 every day Citalopram / Active Tablets 30mg 1 1/2 by Unknown Hydrobromide 0000 mouth every day Nexium / Active Capsules DR 40mg 1 by mouth Unknown 0000 every day Singulair / Active Tablets 10mg 1 by mouth Unknown 0000 every day Simvastatin / Active Tablets 20mg 1 by mouth Unknown 0000 every day Synthroid / Active Tablets 137mcg 1 by mouth Unknown 0000 daily Digestive 00// Active Capsules daily Unknown Advantage 0000 Multivitamins / Active Capsules 1 by mouth Unknown 0000 every day Vitamin C / Active Tablets 1000mg daily Unknown 0000 Fiber / Active daily Unknown 0000 Ventolin HFA / Active Aerosol 108(90Base 2 puffs by Unknown 0000 ) mcg/Act mouth four times a day as needed Albuterol / Active Nebulizer (2.5mg/3ML 1 vial via Unknown Sulfate 0000 ) 0.083% nebulizer 4 times daily as needed Asmanex / Active Aerosol 220mcg/Inh 1 puff Unknown Twisthaler 30 0000 daily Metered Doses Vitamin D-1000 / Active Tablets 1000Unit 1 by mouth Unknown Maximum 0000 every day Strength Xyzal Allergy / Active Tablets 5mg 1 by mouth Unknown 24HR 0000 every day Folic Acid 00/ Active Tablets 400mcg take one Unknown 0000 tablet by mouth every day (supplemen t) Vitamin B-12 07/15/ Hx Tablets 1000mcg 1 by mouth Kenneth Marino 2018 - every day Yassine 07/14/ DO FACC 2018 Meloxicam 03/25/ Hx Tablets 15mg 30tab 1 by mouth M25.461 Ivanna 2018 - s every day Tomas, 07/30/ MMilly 2017 Iron 09/25/ Hx Tablets 325(65Fe) 60tab 2 tab by Sonia 2016 - mg s mouth 2-3x Tyrell, 07/30/ per week 2017 Ciferex 09/24/ Hx Capsules 1-3775mg-U 30cap 1 by mouth Sonia 2017 - nit s every day Tyrell, 07/30/ 2017 Xyzal / Hx Tablets 5mg 1 by mouth Unknown 0000 - every day 2017 Synthroid / Hx Tablets 112mcg 1 by mouth Unknown 0000 - on , 09/23/ , Sat and Sun Vitamin D / Hx 5,000 Unknown 0000 - units 2017 Zyrtec Allergy / Hx Tablets 10mg 1 by mouth Unknown 0000 - every day 2017 Immunizations CPT Code Status Date Vaccine Lot # [id number] Given 11/21/2015 Influenza Virus 3Yrs & Over Vital Signs Date Vital Result Comment 07/31/2017 Weight 202.31 lb without shoes Heart Rate 86 /min BP Systolic 130 mmHg Rue lg cuff BP Diastolic 80 mmHg Rue lg cuff BP Systolic Sitting 130 mmHg Lue lg cuff BP Diastolic Sitting 84 mmHg Lue lg cuff BP Systolic Standing 134 mmHg Lue lg cuff BP Diastolic Standing 90 mmHg Lue lg cuff Respiratory Rate 18 /min 07/03/2017 Height 66 inches 5'6" Weight 195.00 lb Heart Rate 72 /min BP Systolic Sitting 138 mmHg Rue reg cuff BP Diastolic Sitting 100 mmHg Rue reg cuff BP Systolic Recheck 128 mmHg left large cuff BP Diastolic Recheck 84 mmHg left large cuff Respiratory Rate 16 /min O2 % BldC Oximetry 98 % On Ra BMI (Body Mass Index) 31.5 kg/m2 04/04/2017 Height 66 inches 5'6" Weight 213.12 [...] Test Date Test Result H/L Range Note Order 05/03/2017 [facility] <pending> CBC Auto Diff 09/24/2016 White Blood Count [...] 15-55 Procedures Date CPT Code Description Status 07/31/2017 13025 EKG Tracing & Interpretation Completed 04/19/2017 60840 Polysomnography Sleep Staging 4+ Parameters Completed 09/28/2016 94273 Sleep Study Unattended,HRT Rate,Oxygen Sat,Resp Completed Effort/Airflow 04/16/2016 30402 EKG Tracing & Interpretation Completed Encounters Type Date Location Provider CPT E/M Dx Office Visit 07/31/2017 [facility] [place] [address] R07.9 3:00p [facility] FACC R00.2 R06.02 R55 I46.8 Office Visit 07/03/2017 8:00a [facility] Shahla Osman 40206 G47.33 Services [facility] TRACIE BENTON, PLANT PROTECTION GUARD-SUBHA Z68.31 Office Visit 04/04/2017 11:15a [facility] Shahla Osman 30689 G47.33 [facility] TRACIE BENTON, ISAAC Z97.2 Office Visit 04/01/2017 3:00p [facility] Ivanna Marin M.D. 49034 M25.561 C.M.A. M25.461 W19.xxxD S80.01xD Office Visit 03/25/2017 1:30p [facility] Ivanna Marin M.D. 47130 M25.561 C.M.A. M25.461 S83.421A W19.xxxA S80.01xA Office Visit 10/30/2016 1:30p [facility] [place] [address] G47.33 [facility] G25.81 Office Visit 09/24/2016 8:00a [facility] [place] [address] R06.83 [facility] R06.81 G25.81 R40.0 R41.840 Office Visit 04/16/2016 3:00p [facility] Tahmina Dang, [address] R07.9 [facility] [place] [facility] [place] FACC, FSCAI R94.31 Plan of Care Future Appointment(s):08/21/2017 9:00 am - Ica Nuclear Schedule at [facility]08/21/2017 9:30 am - Kenneth Metzger DO FACC at [facility]08/09/2017 11:15 am - Nurse Visit IC at [facility]08/08/2017 11:00 am - Nurse Visit IC at [facility]08/08/2017 10 :30 am - Traveling ECHO Chi 1 at [facility]09/11/2017 8:15 am - Shahla Osman DNP, RN, PLANT PROTECTION GUARD-BC at [facility]2017 - Kenneth Metzger DO FACCR07.9 Chest pain, unspecifiedNew Orders:Stress Test, Treadmill, No ImagingFollow up:Please schedule echo and holter prior to treadmill study Follow up PRNR00.2 NbzbnloegyahT44.02 Shortness of breathNew Orders:OsgctdnhlrqzeaH75 Syncope and collapseNew Orders:Holter KtabxkuU12.8 Cardiac arrest due to other underlying condition
[2017-08-09 17:04] VITALS: BP 131/84
--- NOTE | 2017-08-09 18:06 | UC ---
Respiratory Complaint HPI - HPI Summary HPI Summary: Patient is a 47-year-old female presenting to the with chief complaint of cough, congestion, upper respiratory symptoms. She states a few days ago she was prepping for a colonoscopy and began to vomit. She vomited 4 times and during this time feels she may have aspirated. She endorses now with coughing a salty feeling in the back of her throat. Denies any fevers, sweats, chills. History of PNA. Endorses shortness of breath only with coughing. Coughing spells last several seconds to a minute and have been intermittent, worse at night. Denies any headache or chest pain. - History of Current Complaint Chief Complaint: UCRespiratory Stated Complaint: RESP Time Seen by Provider: 08/09/17 17:37 Hx Obtained From: Patient Hx Last Menstrual Period: hysterectomy ?: No Onset/Duration: Sudden Onset Timing: Constant Severity Initially: Mild Severity Currently: Mild Pain Intensity: 2 Pain Scale Used: 0-10 Numeric Character: Cough: Nonproductive Aggravating Factors: Deep Breaths Alleviating Factors: Upright Position Associated Signs And Symptoms: Positive: URI. Negative: Dyspnea, Fever, Chills , Pleuritic Chest Pain, Wheezing, Hemoptysis, Nasal Congestion, Hoarseness - Risk Factors Pulmonary Embolism Risk Factors: Negative Cardiac Risk Factors: Negative Pseudomonas Risk Factors: Negative Tuberculosis Risk Factors: Negative - Allergies/Home Medications Allergies/Adverse Reactions: Allergies Allergy/AdvReac Type Severity Reaction Status Date / Time Sulfa (Sulfonamide Allergy Intermediate Rash Verified 08/09/17 17:04 Antibiotics) mold Allergy sinus Verified 08/09/17 17:04 pollen extracts Allergy sinus, Verified 08/09/17 17:04 breathing narcotics Allergy See Comment Uncoded 08/09/17 17:04 PMH/Surg Hx/FS Hx/Imm Hx Previously Healthy: Yes Other History Of: Negative For: Anticoagulant Therapy - Surgical History Surgical History: Yes Surgery Procedure, Year, and Place: HYSTERECTOMY. GALLBLADDER. Cervial rib removal. OVARIAN CYST REMOVED 1990 - Family History Known Family History: Positive: Hypertension - Social History Occupation: Employed Full-time Lives: With Family Alcohol Use: Rare Substance Use Type: None Smoking Status (MU): Never Smoked Tobacco Review of Systems Constitutional: Negative Skin: Negative Eyes: Negative ENT: Negative Respiratory: Shortness Of Breath, Cough Musculoskeletal: Negative Neurological: Negative Is Patient Immunocompromised?: No All Other Systems Reviewed And Are Negative: Yes Physical Exam Triage Information Reviewed: Yes Appearance: Well-Appearing, No Pain Distress, Well-Nourished Vital Signs: Initial Vital Signs Temp 98.4 F 08/09/17 16:58 Pulse 75 08/09/17 16:58 Resp 16 08/09/17 16:58 BP 131/84 08/09/17 16:58 Pulse Ox 99 08/09/17 16:58 Vital Signs Reviewed: Yes Eyes: Positive: Conjunctiva Clear Neck exam: Normal Neck: Positive: Supple Respiratory Exam: Normal Respiratory: Positive: Chest non-tender, Lungs clear, Normal breath sounds Cardiovascular Exam: Normal Cardiovascular: Positive: RRR Musculoskeletal Exam: Normal Musculoskeletal: Positive: Strength Intact Neurological Exam: Normal Psychological: Positive: Normal Response To Family Skin Exam: Normal UC Diagnostic Evaluation - Laboratory O2 Sat by Pulse Oximetry: 99 Respiratory Course/Dx - Course Course Of Treatment: During the course of treatment, the patient's evaluated for possible aspiration PNA. Chest x-ray obtained. Lungs are CTA. RRR. Patient appears well. X-ray obtained which shows stigmata of obstructive lung disease. No acute pulmonary or cardiac process evident. Patient also has a history of cardiac arrest following a clavicle surgery for thoracic outlet syndrome. She also has a history of asthma. Due to these risk factors I've given a antibiotic to prevent any pneumonia from her recent aspirations. She is to be seen in the ED for any worsening or changing symptoms. She understands these return precautions. I have also discussed Sudafed or another drying agents such as a allergy medication if she continues to have symptoms. - Differential Dx/Diagnosis Differential Diagnosis/HQI/PQRI: Aspiration, Asthma Provider Diagnoses: Aspiration Discharge - Sign-Out/Discharge Documenting (check all that apply): Discharge/Admit/Transfer - Discharge Plan Condition: Stable Disposition: HOME Prescriptions: Azithromyxin JUSTIN (NF) [Z-Justin (Zithromax) 250 mg tabs #6] 2 tab PO .TODAY, THEN 1 DAILY #6 tab Patient Education Materials: Aspiration Pneumonia (DC) Referrals: Aggie Flores MD [Primary Care Provider] - Additional Instructions: As discussed, we are only treating prophylactically and you are not being diagnosed with this at this time You may add on a drying agent as discussed, such as a sudafed Continue with your CPAP as indicated If you develop fevers, sweats or chills - or any worsening symptoms - please return to the ED immediately. - Billing Disposition and Condition Condition: STABLE Disposition: HOME
--- NOTE | 2017-08-09 18:16 | RAD ---
INDICATION: 2 days shortness of breath, chest tightness, cough. Previous myocardial infarction. Previous cervical rib resection. COMPARISON: June 05, 2017 TECHNIQUE: Dual energy PA and routine lateral views of the chest were obtained. REPORT: Postsurgical change of resection of the posterior segment of the LEFT first rib. Unchanged elevated lung volumes and mild prominence of the interstitial markings. No focal pulmonary lesion, compelling alveolar consolidation, pleural effusion, pneumothorax. The heart, pulmonary vasculature, and mediastinal contours are unremarkable. IMPRESSION: Stigmata of obstructive lung disease. No acute pulmonary or cardiac process evident.
== END 2017-08-09 18:36 | disposition home or self-care (01) ==
LOC: UCEAST 15:55
DX: J69.0 Pneumonitis due to inhalation of food and vomit (principal); Z88.2 Allergy status to sulfonamides; Z88.5 Allergy status to narcotic agent; Z91.09 Other allergy status, other than to drugs and biological substances
CPT/HCPCS: 71046; 99212; G0463

== ENCOUNTER 2018-01-17 12:32 | Emergency (ER) | payer BC ==
[2018-01-17 12:52] VITALS: BP 140/86
--- NOTE | 2018-01-17 13:21 | UC ---
Head Injury HPI - HPI Summary HPI Summary: 47 yo F s/p mechanical fall. Fell into mud. Unsure of head strike. C/o nausea, no vomiting, and feeling of fogginess. no vision changes, no gait instability, no numbness/weakness of extremities. Not on blood thinners. did not fall from height. fall was caused by "slip" on wet ground. - History Of Current Complaint Chief Complaint: UCHeadInjury Stated Complaint: HEAD INJURY Time Seen by Provider: 01/17/18 13:18 Hx Last Menstrual Period: hysterectomy Pain Intensity: 3 - Allergies/Home Medications Allergies/Adverse Reactions: Allergies Allergy/AdvReac Type Severity Reaction Status Date / Time Sulfa (Sulfonamide Allergy Intermediate Rash Verified 01/17/18 12:43 Antibiotics) mold Allergy sinus Verified 01/17/18 12:43 pollen extracts Allergy sinus, Verified 01/17/18 12:43 breathing narcotics Allergy See Comment Uncoded 01/17/18 12:43 PMH/Surg Hx/FS Hx/Imm Hx Other History Of: Negative For: Anticoagulant Therapy - Surgical History Surgical History: Yes Surgery Procedure, Year, and Place: HYSTERECTOMY. GALLBLADDER. Cervical rib removal 2016. OVARIAN CYST REMOVED 1990 - Family History Known Family History: Positive: Hypertension - Social History Alcohol Use: None Substance Use Type: None Smoking Status (MU): Never Smoked Tobacco Review of Systems All Other Systems Reviewed And Are Negative: Yes Physical Exam Triage Information Reviewed: Yes Appearance: Well-Appearing, No Pain Distress, Well-Nourished Vital Signs: Initial Vital Signs Temp 97.7 F 01/17/18 12:45 Pulse 86 01/17/18 12:45 Resp 18 01/17/18 12:45 BP 140/86 01/17/18 12:45 Pulse Ox 96 01/17/18 12:45 Vital Signs Reviewed: Yes Eyes: Positive: Conjunctiva Clear ENT: Positive: Other - no hemotympanum, no racoon eyes, no fuetnes's sign, no csf leak, no scalp contusion or laceration. Negative: TM bulging, TM dull, TM red Neck exam: Normal Neck: Positive: Supple, Other: - nontender Respiratory: Positive: No respiratory distress, No accessory muscle use Musculoskeletal Exam: Normal Neurological: Positive: Alert, Muscle Tone Normal, Other: - gait steady, rhomberg neg, finger-nose normal, CYNDI normal, finger tapping and heel-jimenes testing normal Psychological: Positive: Normal Response To Family, Age Appropriate Behavior Head Injury Course/Dx - Differential Dx/Diagnosis Differential Diagnosis/HQI/PQRI: Concussion Without LOC, Contusion Provider Diagnoses: concussion Discharge - Sign-Out/Discharge Documenting (check all that apply): Patient Departure All imaging exams completed and their final reports reviewed: No Studies - Discharge Plan Condition: Stable Disposition: HOME Prescriptions: Ondansetron TAB* [Zofran 4 MG Tab*] 4 mg PO Q6H PRN 3 Days #12 tab PRN Reason: Nausea Patient Education Materials: Concussion (ED) Referrals: Aggie Flores MD [Primary Care Provider] - Additional Instructions: Present to an ER immediately for evaluation if you develop new symptoms. - Billing Disposition and Condition Condition: STABLE Disposition: Home
== END 2018-01-17 13:36 | disposition home or self-care (01) ==
LOC: UCEAST 12:32
DX: S06.0X9A Concussion with loss of consciousness of unspecified duration, initial encounter (principal); W01.0XXA Fall on same level from slipping, tripping and stumbling without subsequent striking against object, initial encounter; Y92.9 Unspecified place or not applicable; Z88.5 Allergy status to narcotic agent; Z88.2 Allergy status to sulfonamides
CPT/HCPCS: 99211; G0463

== ENCOUNTER 2018-01-21 16:24 | Emergency (ER) | payer BC ==
--- NOTE | 2018-01-21 17:31 | ED ---
Upper Extremity Pain - HPI Summary HPI Summary: 47-year-old female presents with right shoulder and neck pain after fall couple days ago. She states that she fell backwards onto her back and her head. She states that gradually her neck pain worse. Pain is located in the right side of neck. She denies any urinary symptoms. No loss of bladder of bladder. no saddle anaesthesia or numbness or tingling into her legs. She also admits pelvic bone pain. She also is pain over her anterior Right shoulder. She has full range of motion shoulder. She is limited range of motion to the right of her neck. She also noticed episode of numbness in her left arm that lasted couple minutes yesterday. She has history of neck surgery 2 years ago on left side. She was evaluated at urgent care for this fall and was diagnosed with concussion. She denies any chest pain or shortness of breath. No other symptoms. She has been taking Advil for her pain which has been helping. - History of Current Complaint Chief Complaint: [place] Stated Complaint: NECK AND SHOULDER PAIN Time Seen by Provider: 01/21/18 16:56 Hx Last Menstrual Period: hysterectomy - Allergies/Home Medications Allergies/Adverse Reactions: Allergies Allergy/AdvReac Type Severity Reaction Status Date / Time Sulfa (Sulfonamide Allergy Intermediate Rash Verified 01/21/18 16:29 Antibiotics) mold Allergy sinus Verified 01/21/18 16:29 pollen extracts Allergy sinus, Verified 01/21/18 16:29 breathing narcotics Allergy See Comment Uncoded 01/21/18 16:29 PMH/Surg Hx/FS Hx/Imm Hx Endocrine/Hematology History: Reports: Hx Thyroid Disease - hypothyroid Denies: Hx Anticoagulant Therapy, Hx Diabetes Cardiovascular History: Denies: Hx Hypertension, Hx Pacemaker/ICD Respiratory History: Reports: Hx Asthma History: Denies: Hx Renal Disease Sensory History: Denies: Hx Hearing Aid Psychiatric History: Denies: Hx Panic Disorder - Surgical History Surgery Procedure, Year, and Place: HYSTERECTOMY. GALLBLADDER. Cervical rib removal 2016. OVARIAN CYST REMOVED 1990 Infectious Disease History: No Infectious Disease History: Denies: History Other Infectious Disease, Traveled Outside the [place] in Last 30 Days - Family History Known Family History: Positive: Hypertension - Social History Alcohol Use: None Substance Use Type: Reports: None Hx Tobacco Use: No Smoking Status (MU): Never Smoked Tobacco Review of Systems Negative: Fever Negative: Chest Pain Negative: Shortness Of Breath Positive: Myalgia - right shoulder, neck, and pubic pain All Other Systems Reviewed And Are Negative: Yes Physical Exam Triage Information Reviewed: Yes Vital Signs On Initial Exam: Initial Vitals Temp Pulse Resp BP Pulse Ox 98.2 F 94 18 152/88 97 01/21/18 16:26 01/21/18 16:26 01/21/18 16:26 01/21/18 16:26 01/21/18 16:26 Vital Signs Reviewed: Yes Appearance: Positive: Well-Appearing Skin: Positive: Warm, Dry Head/Face: Positive: Normal Head/Face Inspection Eyes: Positive: Normal, Conjunctiva Clear ENT: Positive: Pharynx normal Respiratory/Lung Sounds: Positive: Clear to Auscultation, Breath Sounds Present Cardiovascular: Positive: Normal, RRR Musculoskeletal: Positive: Limited @ - rotation to right with pain, Other - tenderness right side of neck, good pulses, good strength upper extremities, sensation grossly intact, tenderness right acromion, full ROM shoulder Neurological: Positive: Normal Diagnostics - Vital Signs Vital Signs Temp Pulse Resp BP Pulse Ox 01/21/18 16:26 98.2 F 94 18 152/88 97 - Laboratory Lab Statement: Any lab studies that have been ordered have been reviewed, and results considered in the medical decision making process. - Radiology shoulder Radiology Interpretation Completed By: Radiologist Summary of Radiographic Findings: no fracture pelvic Radiology Interpretation Completed By: Radiologist Summary of Radiographic Findings: no fx - CT neck CT Interpretation Completed By: Radiologist Summary of CT Findings: IMPRESSION: 1. Multilevel degenerative disc and facet disease. 2. No acute fracture, subluxation, or aggressive osseous lesion. Course/Dx - Course Course Of Treatment: 47-year-old female presents with right shoulder and neck pain after fall couple days ago. She states that she fell backwards onto her back and her head. She states that gradually her neck pain worse. Pain is located in the right side of neck. She denies any urinary symptoms. No loss of bladder of bladder. no saddle anaesthesia or numbness or tingling into her legs. She also admits pelvic bone pain. She also is pain over her anterior Right shoulder. She has full range of motion shoulder. She is limited range of motion to the right of her neck. She also noticed episode of numbness in her left arm that lasted couple minutes yesterday. She has history of neck surgery 2 years ago on left side. She was evaluated at urgent care for this fall and was diagnosed with concussion. She denies any chest pain or shortness of breath. No other symptoms. She has been taking Advil for her pain which has been helping. on exam tenderness right side of neck. limited rotation to the right. neurovascular intact. good strenght upper extermity. nontender lower back. tenderness over pubic bone. neg SLR. tenderness acromion right shoulder. xray shoulder normal. discussed will add on lidocaine patch. told to follow up with primary. patient understand and agrees with plan. - Diagnoses Differential Diagnosis/HQI/PQRI: Positive: Arthritis, Fracture (Closed), Strain Provider Diagnoses: Neck pain, Shoulder pain Discharge - Sign-Out/Discharge Documenting (check all that apply): Patient Departure - Discharge Plan Condition: Good Disposition: HOME Prescriptions: Lidocaine PATCH 5%* [Lidoderm 5% Patch*] 1 patch TRANSDERM DAILY #5 patch Patient Education Materials: Neck Pain (ED) Referrals: Aggie Flores MD [Primary Care Provider] - Additional Instructions: Apply lidocaine patches to area for up to 12 hours in one 24 hour period Use ibuprofen or Tylenol for pain every 6 hours ice/heat area, move as much as possible Follow up with primary within 5 days Return to ED if develop any new or worsening symptoms - Billing Disposition and Condition Condition: GOOD Disposition: Home
[2018-01-21] MEDS ORDERED: Ketorolac INJ* 30 MG/ML 1 ML VIAL IM ONE (17:53)
[2018-01-21] MEDS ORDERED: Lidocaine PATCH 5%* 1 PATCH TRANSDERM ONE (17:54)
[2018-01-21 18:54] VITALS: BP 139/89
== END 2018-01-21 18:30 | disposition home or self-care (01) ==
LOC: ED 16:24
DX: M54.2 Cervicalgia (principal); M25.511 Pain in right shoulder; Z88.5 Allergy status to narcotic agent; Z88.2 Allergy status to sulfonamides
CPT/HCPCS: 72125; 72170; 96372; 99282; A9270-GY

== ENCOUNTER 2019-03-24 09:39 | Emergency (ER) | payer BC ==
[2019-03-24 09:52] VITALS: BP 134/80
--- NOTE | 2019-03-24 10:19 | UC ---
Throat Pain/Nasal [place] HPI - HPI Summary HPI Summary: 48 y/o female presents to the urgent care c/o Patient reports fever, cough, headache, body aches x 3 days - History of Current Complaint Chief Complaint: UCGeneralIllness Stated Complaint: FEVER SORE THROAT COUGH CHEST CONGESTION Time Seen by Provider: 03/24/19 10:11 Hx Obtained From: Patient Hx Last Menstrual Period: hysterectomy Onset/Duration: Gradual Onset, Lasting Days - 3 days, Still Present, Worse Since - last night w/ fever 101F Severity: Moderate Pain Intensity: 5 - sore throat Pain Scale Used: 0-10 Numeric Cough: Nonproductive Associated Signs & Symptoms: Positive: Fever, Other - clear PND. Negative: Wheezing, Sinus Discomfort - Epiglottits Risk Factors Epiglottis Risk Factors: Negative - Allergies/Home Medications Allergies/Adverse Reactions: Allergies Allergy/AdvReac Type Severity Reaction Status Date / Time Sulfa (Sulfonamide Allergy Intermediate Rash Verified 03/24/19 09:45 Antibiotics) mold Allergy sinus Verified 03/24/19 09:45 pollen extracts Allergy sinus, Verified 03/24/19 09:45 breathing narcotics Allergy See Comment Uncoded 03/24/19 09:45 PMH/Surg Hx/FS Hx/Imm Hx Previously Healthy: Yes Endocrine History: Hypothyroidism, Dyslipidemia Cardiovascular History: Cardiac Disease GI/ History: Gastroesophageal Reflux Other Neurological History: 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 GALLBLADDER. Cervical rib removal 2016. OVARIAN CYST REMOVED 1990. Brain surgery of third ventricle 2018 - Family History Known Family History: Positive: Cardiac Disease, Hypertension - Social History Occupation: Employed Full-time Lives: With Family Alcohol Use: None Substance Use Type: None Smoking Status (MU): Never Smoked Tobacco Review of Systems All Other Systems Reviewed And Are Negative: Yes Constitutional: Positive: Chills, Fatigue, Other - body ahces Skin: Positive: Negative Eyes: Positive: Negative ENT: Positive: Sore Throat, Sinus Pain/Tenderness - clear PND Respiratory: Positive: Cough Cardiovascular: Positive: Negative Gastrointestinal: Positive: Negative Genitourinary: Positive: Negative Motor: Positive: Negative Neurovascular: Positive: Negative Musculoskeletal: Positive: Myalgia Neurological: Positive: Headache - mild Psychological: Positive: Negative Is Patient Immunocompromised?: No Physical Exam - Summary Physical Exam Summary: VITAL SIGNS: Reviewed. GENERAL: Patient is a well developed and nourished Female who is sitting comfortably in the examining table. Patient is not in any acute respiratory distress. HEAD AND FACE: No signs of trauma. No ecchymosis, hematomas or skull depressions. No sinus tenderness. EYES: PERRLA, EOMI x 2, No injected conjunctiva, no nystagmus. No photophobia. EARS: Hearing grossly intact. Ear canals and tympanic membranes are within normal limits. MOUTH: Positive pharynx with mild erythema, no exudates, No B/L tonsillar enlargement , no exudate. Uvula in midline. edematous nasal mucosa w/ clear nasal discharge, clear PND NECK: Supple, trachea is midline, Positive anterior cervical lymphadenopathy, no JVD, no carotid bruit, no c-spine tenderness, neck with full ROM. No meningeal signs, no Kernig's or brudzinskis signs. CHEST: Symmetric, no tenderness at palpation LUNGS: Clear to auscultation bilaterally. No wheezing or crackles. CVS: Regular rate and rhythm, S1 and S2 present, no murmurs or gallops appreciated. ABDOMEN: Soft, non-tender. No signs of distention. No rebound no guarding, and no masses palpated. Bowel sounds are normal. EXTREMITIES: FROM in all major joints, no edema, no cyanosis or clubbing. NEURO: Alert and oriented x 3. No acute neurological deficits. Pt follows commands. SKIN: Dry and warm Triage Information Reviewed: Yes Vital Signs: Initial Vital Signs Temp 97.9 F 03/24/19 09:47 Pulse 96 03/24/19 09:47 Resp 18 03/24/19 09:47 BP 134/80 03/24/19 09:47 Pulse Ox 97 03/24/19 09:47 Throat Pain/Nasal Course/Dx - Course Course Of Treatment: Pt is hemodynamically stable, Vitals: WNL. Pt w/ laryngitis and cough on examination. Rapid strep: negative. Rapid Influenza A&B ordered negative. Pt Rx flonase nasal spray to clear sinuses and Tessalon tabs PO to alleviate cough. Advised to continue w/ Advil PO and use CPAV at night to alleviate symptoms.. Advised on hand washing. Pt advised to rest, increase fluid intake, eat well and avoid strenuous exercise. If symptoms worsen if not controlled of fever to immediately go to the ER for further management, Otherwise, to f/u with her PCP for further evaluation and treatment in 2-3 days . Pt understood and agreed with plan of care. - Differential Dx/Diagnosis Differential Diagnosis/HQI/PQRI: Influenza, Laryngitis, Mononucleosis, Otitis Media, Pharyngitis, Tonsillitis, URI Provider Diagnosis: Laryngitis, Cough Discharge ED - Sign-Out/Discharge Documenting (check all that apply): Patient Departure - D/c home All imaging exams completed and their final reports reviewed: No Studies - Discharge Plan Condition: Stable Disposition: HOME Prescriptions: Benzonatate CAP* [Tessalon 100 MG CAP*] 100 mg PO TID #21 cap Fluticasone NASAL SPRAY 50MCG* [Flonase NASAL SPRAY 50MCG*] 2 spray BOTH NARES DAILY #1 btl Patient Education Materials: Laryngitis (ED) Forms: *Work Release Referrals: Aggie Flores MD [Primary Care Provider] - 2 Days Additional Instructions: 1-Please continue taking Advil PO 600mg q6-8hrs prn as instructed after meals to alleviate fever, pain and swelling. Increase fluid intake, eat well, rest and avoid strenuous exercise 2- Use saline drops and flonase nasal spray to clear sinus and decrease Post nasal drip 3- Use Tessalon tab PO as directed to alleviate cough. 4-If symptoms do not improve or worsen and fever is not controlled w/ medications and you develop severe MAX or N/V please go immediately to the ER for further management. Otherwise f/u w/ your PCP if not improvement for further management. - Billing Disposition and Condition Condition: STABLE Disposition: Home
[2019-03-24 10:38] LABS: Influenza A Molecular NEGATIVE (Negative); Influenza B Molecular NEGATIVE (Negative)
== END 2019-03-24 11:09 | disposition home or self-care (01) ==
LOC: UCEAST 09:39
DX: R05 Cough (principal); J04.0 Acute laryngitis; R51 Headache; M79.10 Myalgia, unspecified site; Z88.2 Allergy status to sulfonamides; Z88.5 Allergy status to narcotic agent; Z91.09 Other allergy status, other than to drugs and biological substances
CPT/HCPCS: 87651; 99212; G0463

== ENCOUNTER 2019-03-30 10:16 | Emergency (ER) | payer BC ==
[2019-03-30] MEDS ORDERED: NS 0.9% 1000 ML** 1,000 ML IV ONE (11:00)
[2019-03-30 11:10] LABS: ABS Eosinophils 0.1 10^3/ul (0-0.6); ABS Lymphocytes 1.8 10^3/ul (1.0-4.8); ABS Monocytes 0.5 10^3/ul (0-0.8); ABS Neutrophils 4.5 10^3/ul (1.5-7.7); Eosinophil % 1.4 %; Hematocrit 37 % (35-47); Hemoglobin 12.7 g/dL (12.0-16.0); Lymphocyte % 25.5 %; Mean Corpuscular HGB Conc 34 g/dL (31-36); Mean Corpuscular Hemoglobin 28 pg (27-31); Mean Corpuscular Volume 83 fL (80-97); Mean Platelet Volume 6.3 fL (7.4-10.4); Nucleated Red Blood Cells % 0.1; Platelet Count 402 10^3/uL (150-450); Red Blood Count 4.47 10^6 /uL (3.70-4.87); Red Cell Distribution Width 13 % (10-15); White Blood Count 6.9 10^3/uL (3.5-10.8)
--- NOTE | 2019-03-30 11:14 | ED ---
Respiratory - HPI Summary HPI Summary: Pt is a 48 y/o F presenting to the ED with a chief respiratory complaint. She states shes had a productive cough for about 1 week that sometimes produces bloody sputum, as well as shortness of breath on exertion, sore throat, and slight fever, up to 102. She denies ear pain. She had her flu shot this year. Notes hx of endoscopic colloid cyst removal in her 3rd ventricle in June of 2018. - History of Current Complaint Chief Complaint: EDUpperRespComplaint Stated Complaint: COUGH Time Seen by Provider: 03/30/19 10:49 Hx Obtained From: Patient Onset/Duration: Gradual Onset, Lasting Weeks, Still Present Timing: Constant Initial Severity: Mild Current Severity: Mild Pain Intensity: 1 Character: Cough (Productive), Dyspnea on Exertion Sputum Amount: Moderate Sputum Color: Red Specks Aggravating Factor(s): Nothing Alleviating Factor(s): Nothing Associated Signs and Symptoms: Fever, SOB, Hoarseness - Allergy/Home Medications Allergies/Adverse Reactions: Allergies Allergy/AdvReac Type Severity Reaction Status Date / Time Sulfa (Sulfonamide Allergy Intermediate Rash Verified 03/30/19 10:20 Antibiotics) mold Allergy sinus Verified 03/30/19 10:20 pollen extracts Allergy sinus, Verified 03/30/19 10:20 breathing narcotics Allergy See Comment Uncoded 03/30/19 10:20 Home Medications: Home Medications Albuterol Sulfate 0.63 mg INH Q4H PRN 03/30/19 [History Confirmed 03/30/19] Ascorbic Acid TAB* [Vitamin C TAB*] 500 mg PO DAILY 03/30/19 [History Confirmed 03/30/19] Bifidobacterium Infantis [Digestive Probiotic] 1 each PO DAILY 03/30/19 [ History Confirmed 03/30/19] Cetirizine* [ZyrTEC 10 MG TAB*] 10 mg PO DAILY 03/30/19 [History Confirmed 03/30] Cholecalciferol TAB* [Vitamin D TAB*] 1,000 unit PO DAILY 03/30/19 [History Confirmed 03/30/19] Fluticasone-Salmeterol 250-50* [Advair Diskus 250-50*] 1 puff INH BID 03/30/19 [ History Confirmed 03/30/19] Folic Acid TAB* [Folvite TAB*] 1 mg PO DAILY 03/30/19 [History Confirmed ] Multivitamins/Minerals TAB* [Theragran/minerals TAB*] 1 tab PO DAILY 03/30/19 [ History Confirmed 03/30/19] Pantoprazole TAB * [Protonix TAB*] 40 mg PO DAILY 03/30/19 [History Confirmed ] Psyllium Husk [Fiber] 0.4 gm PO DAILY 03/30/19 [History Confirmed 03/30/19] PMH/Surg Hx/FS Hx/Imm Hx Previously Healthy: Yes Endocrine/Hematology History: Reports: Hx Thyroid Disease - hypothyroid Denies: Hx Anticoagulant Therapy, Hx Diabetes Cardiovascular History: Denies: Hx Hypertension, Hx Pacemaker/ICD Respiratory History: Reports: Hx Asthma History: Denies: Hx Renal Disease Sensory History: Denies: Hx Hearing Aid Psychiatric History: Denies: Hx Panic Disorder - Surgical History Surgery Procedure, Year, and Place: HYSTERECTOMY. GALLBLADDER. Cervical rib removal 2016. OVARIAN CYST REMOVED 1990. Brain surgery of third ventricle 2018 Infectious Disease History: No Infectious Disease History: Denies: History Other Infectious Disease, Traveled Outside the [place] in Last 30 Days - Family History Known Family History: Positive: Cardiac Disease, Hypertension - Social History Alcohol Use: None Hx Substance Use: No Substance Use Type: Reports: None Hx Tobacco Use: No Smoking Status (MU): Never Smoked Tobacco Review of Systems Positive: Fever Positive: Sore Throat. Negative: Ear Ache Positive: Shortness Of Breath, Cough All Other Systems Reviewed And Are Negative: Yes Physical Exam - Summary Physical Exam Summary: VITAL SIGNS: Reviewed. GENERAL: Patient is a well-developed and nourished female who is lying comfortable in the stretcher. Patient is not in any acute respiratory distress. She has some dysphonia. HEAD AND FACE: No signs of trauma. No ecchymosis, hematomas or skull depressions. No sinus tenderness.. EYES: PERRLA, EOMI x 2, No injected conjunctiva, no nystagmus. EARS: Hearing grossly intact. Ear canals and tympanic membranes are within normal limits. MOUTH: Oropharynx within normal limits. NECK: Supple, trachea is midline, no adenopathy, no JVD, no carotid bruit, no c- spine tenderness, neck with full ROM. CHEST: Symmetric, no tenderness at palpation. LUNGS: Some coarse breath sounds in the lungs bilaterally. No wheezing or crackles. CVS: Regular rate and rhythm, S1 and S2 present, no murmurs or gallops appreciated. ABDOMEN: Soft, non-tender. No signs of distention. No rebound, no guarding, and no masses palpated. Bowel sounds are normal. EXTREMITIES: FROM in all major joints, no edema, no cyanosis or clubbing. NEURO: Alert and oriented x 3. No acute neurological deficits. Speech is normal and follows commands. SKIN: Dry and warm. Triage Information Reviewed: Yes Vital Signs On Initial Exam: Initial Vitals Temp Pulse Resp BP Pulse Ox 97.8 F 88 17 155/90 95 03/30/19 10:17 03/30/19 10:17 03/30/19 10:17 03/30/19 10:17 03/30/19 10:17 Vital Signs Reviewed: Yes Procedures - Sedation Patient Received Moderate/Deep Sedation with Procedure: No Diagnostics - Vital Signs Vital Signs Temp Pulse Resp BP Pulse Ox 03/30/19 10:17 97.8 F 88 17 155/90 95 - Laboratory Lab Results: Lab Results 03/30/19 Range/Units 11:01 WBC 6.9 (3.5-10.8) 10^3/uL RBC 4.47 (3.70-4.87) 10^6 /uL Hgb 12.7 (12.0-16.0) g/dL Hct 37 (35-47) % MCV 83 (80-97) fL MCH 28 (27-31) pg MCHC 34 (31-36) g/dL RDW 13 (10-15) % Plt Count 402 (150-450) 10^3/uL MPV 6.3 L (7.4-10.4) fL Neut % (Auto) 65.1 % Lymph % (Auto) 25.5 % [place] % (Auto) 7.3 % Eos % (Auto) 1.4 % Baso % (Auto) 0.7 % Absolute Neuts (auto) 4.5 (1.5-7.7) 10^3/ul Absolute Lymphs (auto) 1.8 (1.0-4.8) 10^3/ul Absolute Monos (auto) 0.5 (0-0.8) 10^3/ul Absolute Eos (auto) 0.1 (0-0.6) 10^3/ul Absolute Basos (auto) 0.0 (0-0.2) 10^3/ul Absolute Nucleated RBC 0.0 10^3/ul Nucleated RBC % 0.1 Result Diagrams: 03/30/19 11:01 03/30/19 11:01 Lab Statement: Any lab studies that have been ordered have been reviewed, and results considered in the medical decision making process. - Radiology CXR Radiology Interpretation Completed By: Radiologist Summary of Radiographic Findings: Retraction of the left michael superiorly and medially possibly left upper lobe atelectasis. Correlation with CT is suggested. ED physician has reviewed this report. - CT Chest CT CT Interpretation Completed By: Radiologist Summary of CT Findings: 1. LEFT upper lobe and lingular pneumonia. 2. 1.7 x 1.3 x 1.5 cm rounded area of atelectasis, inflammatory consolidation, or potentially mass at the LEFT upper lobe approximating the mediastinum reference. Absence of IV contrast limits assessment. Reassessment of this indeterminate finding following treatment for pneumonia with a contrast- enhanced CT is suggested. ED physician has reviewed this report. - EKG 1153 Cardiac Rate: NL - 82bpm EKG Rhythm: Sinus Rhythm ST Segment: Normal Ectopy: None Summary of EKG Findings: EKG at 1153 shows NSR at 82bpm with no ST elevations and nml axis. Dr. Brandon has reviewed and interpreted this EKG. Disposition - Course Assessment/Plan: Pt is a 48 y/o F presenting to the ED with a chief respiratory complaint. She states shes had a productive cough for about 1 week that sometimes produces bloody sputum, as well as shortness of breath on exertion, sore throat, and a slight fever, up to 102. She denies ear pain. She had her flu shot this year. Notes hx of endoscopic colloid cyst removal in her 3rd ventricle in June of 2018. In the ED course she was given IVF for hydration. Blood work without any significant abnormality except for glucose of 101 and CRP of 34.6. Chest x-ray impression: Retraction of the left hilar superiorly and medially possibly left upper lobe atelectasis. Correlation with the CT is suggested. Chest CT impression: Left upper lobe and lingular pneumonia. 1.7 1.31.5 cm round area of atelectasis. Inflammatory consolidation or potentially mass in the left upper lobe approximating the mediastinum reference. Absence of IV contrast limits assessment. Follow up with a contrast enhanced CT is suggested. In the ED course the patient was given Rocephin and azithromycin for pneumonia. At this point the patient will be discharged home with follow with the primary care physician in the next 2-5 days. Patient is to follow-up to repeat the CT with IV contrast to rule out any type of mass. The patient understands and agrees. Patient is supine medically stable alert and oriented 3. - Differential Dx - Cardiopulmonary Differential Diagnoses - Cardiopulmonary: Influenza, Laryngitis, Lower Resp Infection, Sinusitis - Diagnoses Provider Diagnoses: Pneumonia, Lung abnormality Discharge ED - Sign-Out/Discharge Documenting (check all that apply): Patient Departure - Discharge Plan Condition: Stable Disposition: HOME Prescriptions: Levofloxacin TAB* [Levaquin TAB*] 750 mg PO DAILY #7 tab Patient Education Materials: Pneumonia (ED) Referrals: Aggie Flores MD [Primary Care Provider] - Additional Instructions: Please take your prescribed medications as instructed. Follow up with your primary care provider in 1-3 days. Return to the emergency department with any new or worsening symptoms. - Billing Disposition and Condition Condition: STABLE Disposition: Home - Attestation Statements Document Initiated by Jose: Yes Documenting Scribe: Andra Chatman Provider For Whom Jose is Documenting (Include Credential): Terrell Brandon MD. Scribe Attestation: Andra Barragan scribed for Terrell Brandon MD. on 03/30/19 at 2034. Scribe Documentation Reviewed: Yes Provider Attestation: The documentation as recorded by the Andra chamberlain accurately reflects the service I personally performed and the decisions made by Terrell kelley MD. Status of Scribe Document: Viewed
[2019-03-30 11:28] LABS: Albumin 4.2 g/dL (3.2-5.2); Albumin/Globulin Ratio 1.4 (1-3); BUN/Creatinine Ratio 19.4 (8-20); C Reactive Protein 34.65 mg/L (<8.01); Calcium 9.2 mg/dL (8.6-10.3); EGFR African American 104.2 (>60); EGFR Non-African American 86.1 (>60); Potassium 3.9 mmol/L (3.5-5.0); Total Bilirubin 0.5 mg/dL (0.2-1.0); Total Protein 7.2 g/dL (6.4-8.9)
[2019-03-30] MEDS ORDERED: cefTRIAXone(*) 1 GM in NS 0.9% 50 ML* 50 ML IVPB ONE (13:08)
[2019-03-30] MEDS ORDERED: Azithromycin TAB* 250 MG PO ONE (13:08)
[2019-03-30 13:28] LABS: Influenza A Molecular NEGATIVE (Negative); Influenza B Molecular NEGATIVE (Negative)
[2019-03-30 13:39] LABS: Urine Appearance Clear; Urine Bilirubin Negative (Negative); Urine Blood Negative (Negative); Urine Color Yellow; Urine Glucose Negative (Negative); Urine Ketones Negative (Negative); Urine Nitrite Negative (Negative); Urine Protein Negative (Negative); Urine Specific Gravity 1.021 (1.010-1.030); Urine Urobilinogen Negative (Negative)
[2019-03-30 14:19] VITALS: BP 154/89
== END 2019-03-30 14:18 | disposition home or self-care (01) ==
LOC: ED 10:16
DX: J18.9 Pneumonia, unspecified organism (principal); R91.8 Other nonspecific abnormal finding of lung field; R50.9 Fever, unspecified; R06.02 Shortness of breath; E03.9 Hypothyroidism, unspecified; Z79.899 Other long term (current) drug therapy
CPT/HCPCS: 36415; 71046; 71250; 80053; 81003; 83605; 85025; 86140; 93005; 99283; A9270-GY; J0696